=== PATIENT | female | born 1985 | race African-American/Black ===

== ENCOUNTER 2016-10-29 18:43 | Emergency (ER) | payer MEDICAID ==
[~2016-10-29] VITALS: Ht 167.6 cm; Wt 72.6 kg
[2016-10-29 18:57] VITALS: BP 134/72
--- NOTE | 2016-10-29 19:03 | NUR ---
Patient ambulated to bed 7. RN evaluating patient at bedside.
--- NOTE | 2016-10-29 19:09 | NUR ---
PATIENT PRESENTS TO ED WITH C/O GENERALIZED RASH X 1 WEEK, PT. STATES SHE THINKS SHE SAW A BED BUG . DENIES N/V/D; SKIN IS PINK/WARM/DRY; AAOX4 WITH EVEN AND STEADY GAIT; LUNGS CLEAR BL; HR EVEN AND REGULAR; PT DENIES ANY FEVER, CP, SOB, OR COUGH AT THIS TIME; PATIENT STATES PAIN OF 0/10 AT THIS TIME; VSS; PATIENT POSITIONED FOR COMFORT; HOB ELEVATED; BEDRAILS UP X2; BED DOWN. ER P.A. EVALUATED PT.
[2016-10-29] MEDS ORDERED: methylPREDNISolone SS 125 MG in WATER STERILE 2 ML IM ONE (19:10)
--- NOTE | 2016-10-29 19:20 | NUR ---
Pt report given to CAMILLA GARCIA. Transfer of care at this time.
[2016-10-29 19:53] VITALS: BP 134/72
--- NOTE | 2016-10-29 19:53 | NUR ---
Patient discharged with v/s stable. Written and verbal after care instructions given and explained. Patient alert, oriented and verbalized understanding of instructions. Ambulatory with steady gait. All questions addressed prior to discharge. ID band removed. Patient advised to follow up with PMD. Rx of PREDNISONE 20MG AND BENADRYL 25MG given. Patient educated on indication of medication including possible reaction and side effects. Opportunity to ask questions provided and answered.
== END 2016-10-29 19:53 | disposition home or self-care (01) ==
LOC: MED 18:45
DX: R21 Rash and other nonspecific skin eruption (principal); R03.0 Elevated blood-pressure reading, without diagnosis of hypertension
CPT/HCPCS: 96372; 99283; J2930; Q0163

== ENCOUNTER 2016-11-05 01:31 | Emergency (ER) | payer MEDICAID ==
[~2016-11-05] VITALS: Ht 167.6 cm; Wt 72.6 kg
[2016-11-05 01:32] VITALS: BP 109/68
--- NOTE | 2016-11-05 01:52 | NUR ---
TO ER BED 1
--- NOTE | 2016-11-05 02:02 | NUR ---
PATIENT PRESENTS TO ED WITH FLU-LIKE SYMPTOMS AND GENERALIZED BODY ACHES . PT STATES THE BODYACHES HAVE BEEN PERSISTENT X3DAYS . DENIES N/V/D; SKIN IS PINK/WARM/DRY; AAOX4 WITH EVEN AND STEADY GAIT; LUNGS CLEAR BL; HR EVEN AND REGULAR; PT DENIES ANY FEVER, CP, SOB, OR COUGH AT THIS TIME; PATIENT STATES PAIN OF 7/10 AT THIS TIME; VSS; PATIENT POSITIONED FOR COMFORT; HOB ELEVATED; BEDRAILS UP X2; BED DOWN. ER MD MADE AWARE OF PT STATUS. AT BEDSIDE
[2016-11-05 03:07] VITALS: BP 110/70
--- NOTE | 2016-11-05 03:07 | NUR ---
Patient discharged with v/s stable. Written and verbal after care instructions given and explained. Patient alert, oriented and verbalized understanding of instructions. Ambulatory with steady gait. All questions addressed prior to discharge. ID band removed. Patient advised to follow up with PMD. Rx of AZITHROMYCIN 250 MG, [facility] HYDROCORTISONE 1%, GUAIATUSSIN AC 100 MG given. Patient educated on indication of medication including possible reaction and side effects. Opportunity to ask questions provided and answered.
== END 2016-11-05 03:07 | disposition home or self-care (01) ==
LOC: MED 01:31
DX: J20.9 Acute bronchitis, unspecified (principal); S80.862A Insect bite (nonvenomous), left lower leg, initial encounter; W57.XXXA Bitten or stung by nonvenomous insect and other nonvenomous arthropods, initial encounter; Y93.89 Activity, other specified; Y92.89 Other specified places as the place of occurrence of the external cause; Y99.8 Other external cause status

== ENCOUNTER 2017-02-12 15:32 | Emergency (ER) | payer MEDICAID ==
[~2017-02-12] VITALS: Ht 167.6 cm; Wt 72.6 kg
[2017-02-12 15:37] VITALS: BP 113/6
--- NOTE | 2017-02-12 17:53 | NUR ---
PATIENT CALLED FROM LOBBY NO ANSWER PATIENT IS LWBS.
== END 2017-02-12 17:53 | disposition left against medical advice (07) ==
LOC: MED 15:32
DX: R50.9 Fever, unspecified (principal); Z53.21 Procedure and treatment not carried out due to patient leaving prior to being seen by health care provider

== ENCOUNTER 2019-08-17 11:32 | Emergency (ER) | payer MEDICAID ==
[~2019-08-17] VITALS: Ht 167.6 cm; Wt 59.0 kg
[2019-08-17 11:44] VITALS: BP 123/70
[2019-08-17] MEDS: methylPREDNISolone SS 125 MG/2 ML VIAL IM ONE (12:26)
[2019-08-17] MEDS: ALBUTEROL SULFATE/IPRATROPIU 3 ML SOL IH ONE (12:35)
[2019-08-17 12:54] VITALS: BP 123/70
== END 2019-08-17 12:54 | disposition home or self-care (01) ==
LOC: MED 11:32
DX: J40 Bronchitis, not specified as acute or chronic (principal); J01.90 Acute sinusitis, unspecified; F17.210 Nicotine dependence, cigarettes, uncomplicated
CPT/HCPCS: 94640; 96372; 99283; J2930; J7620

== ENCOUNTER 2019-10-18 16:53 | Emergency (ER) | payer MEDICAID ==
[~2019-10-18] VITALS: Ht 167.6 cm; Wt 60.8 kg
--- NOTE | 2019-10-18 17:06 | NUR ---
Patient ambulated to bed 4 with family. RN evaluating patient at bedside.
[2019-10-18 17:09] VITALS: BP 106/70
--- NOTE | 2019-10-18 17:17 | NUR ---
PT C/O PRODUCTIVE COUGH W/ GREENISH PHLEGM, SORE THROAT, PRESSURE-LIKE FRONTAL PHAM X 3 WKS, RLQ PAIN VOMITING TODAY. TX FOR SINISITIS AND ACUTE BRONCHITIS ON 08/17/19. SLIGHT PARANASAL SINUS TENDERNESS NOTICED ON PALPATION. -FRONTAL OR MAXILLARY SINUS TENDERNESS. PATIENT STATES PAIN OF 8/10 AT THIS TIME; VSS; PATIENT POSITIONED FOR COMFORT; HOB ELEVATED; BEDRAILS UP X1; BED DOWN. ER MD MADE AWARE OF PT STATUS.
[2019-10-18] MEDS ORDERED: ALBUTEROL SULFATE/IPRATROPIU 3 ML SOL IH ONE (17:20)
--- NOTE | 2019-10-18 17:20 | NUR ---
Dr. Zaman is evaluating the patient at bedside.
--- NOTE | 2019-10-18 17:25 | NUR ---
optometric technician at bedside.
--- NOTE | 2019-10-18 17:31 | NUR ---
RT IS AT BEDSIDE AND IMPLEMENTING BREATHING TREATMENT.
--- NOTE | 2019-10-18 17:36 | NUR ---
U/S IS AT BEDSIDE.
[2019-10-18 17:57] LABS: BASOPHILS % (AUTO) 0.2 % (0.0-2.0); EOSINOPHILS # (AUTO) 0.3 K/uL (0-0.4); HEMATOCRIT 39.1 % (36-48); HEMOGLOBIN 12.8 g/dL (12.0-16.0); LYMPHOCYTES # (AUTO) 1.5 K/uL (2.5-16.5); LYMPHOCYTES % (AUTO) 32.6 % (20.5-51.1); MEAN CORPUSCULAR HEMOGLOBIN 30 pg (27-31); MEAN CORPUSCULAR HGB CONC 33 g/dL (33-37); MEAN CORPUSCULAR VOLUME 91.8 fL (80-94); MONOCYTES # (AUTO) 0.4 K/uL (0.8-1.0); MONOCYTES % (AUTO) 9.6 % (1.7-9.3); NEUTROPHILS # (AUTO) 2.4 K/uL (1.8-7.7); NEUTROPHILS % (AUTO) 51.6 % (42.2-75.2); PLATELET COUNT (AUTO) 176 K/uL (140-450); RED BLOOD CELL COUNT(AUTO) 4.26 MIL/uL (4.20-5.40); RED CELL DISTRIBUTION WIDTH 13.4 % (11.6-13.7); WHITE BLOOD COUNT (AUTO) 4.6 K/uL (4.8-10.8)
[2019-10-18 18:08] LABS: ALBUMIN 3.5 g/dL (3.4-5.0); ANION GAP 10.4 (8-16); CARBON DIOXIDE 29.7 mmol/L (21-32); CREATININE 0.5 mg/dL (0.6-1.3); POTASSIUM 4.1 mmol/L (3.5-5.1); TOTAL BILIRUBIN 0.5 mg/dL (0.0-1.0)
[2019-10-18 18:43] VITALS: BP 112/73
--- NOTE | 2019-10-18 18:43 | NUR ---
Patient discharged with v/s stable. Written and verbal after care instructions given and explained. Patient alert, oriented and verbalized understanding of instructions. Ambulatory with steady gait. All questions addressed prior to discharge. ID band removed. Patient advised to follow up with PMD. Rx of Promethazine, Augmentin, Prednisone, and Albuterol given. Patient educated on indication of medication including possible reaction and side effects. Opportunity to ask questions provided and answered.
== END 2019-10-18 18:43 | disposition home or self-care (01) ==
LOC: MED 16:53
DX: J20.9 Acute bronchitis, unspecified (principal); F17.210 Nicotine dependence, cigarettes, uncomplicated
CPT/HCPCS: 36415; 71045; 76705; 80053; 81002; 81025; 83690; 85025; 94640; 99285; J7620; Q0092

== ENCOUNTER 2020-01-07 11:33 | Emergency (ER) | payer MEDICAID ==
[~2020-01-07] VITALS: Ht 157.5 cm; Wt 59.0 kg
[2020-01-07 11:49] VITALS: BP 97/56
[2020-01-07 12:10] VITALS: BP 97/56
== END 2020-01-07 12:10 | disposition home or self-care (01) ==
LOC: MED 11:33
DX: K04.7 Periapical abscess without sinus (principal)
CPT/HCPCS: 99283